=== PATIENT | male | born 1980 | race Caucasian/White ===

== ENCOUNTER 2016-07-31 21:58 | Emergency (ER) | payer OTHER | END 2016-07-31 22:06 | disposition home or self-care (01) | LOC: CFTX 21:58 | DX: S71.111A Laceration without foreign body, right thigh, initial encounter (principal); Z23 Encounter for immunization; W45.8XXA Other foreign body or object entering through skin, initial encounter | CPT/HCPCS: 12001; 90471; 90715; 99283 ==